=== PATIENT | female | born 1945 | race Asian ===

== ENCOUNTER 2018-05-22 10:07 | Inpatient (IN) | payer OTHER ==
[~2018-05-22] VITALS: Ht 154.9 cm; Wt 60.3 kg
[~2018-05-22 10:07] MED LIST: ATEN-41 PO; OMEG1CAP PO
[2018-05-22] MEDS ORDERED: CEFAZOLIN 1 GM IVPB PREMIX 0 ML IV ONE ×2 (10:26→10:30)
[2018-05-22] MEDS ORDERED: ceFAZolin SODIUM 1 GM VIAL ONE (10:28)
[2018-05-22] MEDS ORDERED: KETOROLAC TROMETHAMINE 30 MG VIAL IVP PRN (11:00)
[2018-05-22] MEDS ORDERED: fentaNYL CITRATE/PF 100 MCG/2 ML AMP IVP PRN ×2 (11:00)
[2018-05-22] MEDS ORDERED: ONDANSETRON HCL 4 MG/2 ML VIAL IVP PRN ×3 (11:00→14:45)
[2018-05-22] MEDS ORDERED: POLYMYXIN 500,000/BACIT.10,000 UNITS in NS IRR 1 L IR ONE (11:44)
[2018-05-22] MEDS ORDERED: CEFAZOLIN SOD 1 GM/ ISO 50 ML PREMIX IV ONE (12:45)
[2018-05-22] MEDS ORDERED: HYDROcodone/ACETAMIN 5-325 MG TAB (NORCO/ VICODIN) PO PRN ×2 (14:15)
[2018-05-22] MEDS ORDERED: OXYCODONE/ACETAMINOPHEN 5-325 TABLET PO PRN ×2 (14:15)
[2018-05-22 14:32] VITALS: BP_SYST 134
[2018-05-22] MEDS ORDERED: NEOSTIGMINE METHYLSULFATE 1 MG/ML, 10 ML VIAL ONE (14:40)
[2018-05-22] MEDS ORDERED: GLYCOPYRROLATE 0.2 MG/ML VIAL ONE (14:40)
[2018-05-22] MEDS ORDERED: fentaNYL CITRATE/PF 100 MCG/2 ML AMP ONE (14:40)
[2018-05-22] MEDS ORDERED: DEXTROSE 50% JECT 50 ML DISP.SYRIN ONE (14:40)
[2018-05-22] MEDS ORDERED: BUPIVACAINE /PF 0.5% 30 ML VIAL ONE (14:40)
[2018-05-22] MEDS ORDERED: ONDANSETRON HCL 4 MG/2 ML VIAL ONE (14:40)
[2018-05-22] MEDS ORDERED: ROCURONIUM BROMIDE 10 MG/ML (ZEMURON) ONE (14:40)
[2018-05-22] MEDS ORDERED: MIDAZOLAM HCL 5 MG/ML VIAL (VERSED) IV ONE (14:40)
[2018-05-22] MEDS ORDERED: CEFAZOLIN 1 GM IVPB PREMIX 50 ML IV ONE (14:40)
[2018-05-22] MEDS ORDERED: FUROSEMIDE 20 MG/2 ML VIAL ONE (14:40)
[2018-05-22] MEDS ORDERED: LIDOCAINE 2%, 20 ML MDV ONE (14:40)
[2018-05-22] MEDS ORDERED: PROPOFOL 200MG/ 20ML VIAL (DIPRIVAN) IV ONE (14:40)
[2018-05-22] MEDS ORDERED: LR 1,000 ML IV.SOLN IV ONE (14:40)
[2018-05-22] MEDS ORDERED: KETOROLAC TROMETHAMINE 30 MG VIAL ONE (14:40)
[2018-05-22] MEDS ORDERED: SEVOFLURANE 15 MIN GAS INH ONE (14:40)
[2018-05-22] MEDS ORDERED: ROPIVACAINE 0.2% 550 ML INJ SCH (14:41)
[2018-05-22] MEDS ORDERED: DIPHENHYDRAMINE INJ 50 MG/ML VIAL IVP PRN ×2 (14:45)
[2018-05-22] MEDS ORDERED: OXYCODONE/ACETAMINOPHEN *10*mg/325 mg TABLET PO PRN (14:45)
[2018-05-22] MEDS ORDERED: NALBUPHINE HCL 10 MG/ML AMP IVP PRN ×2 (14:45)
[2018-05-22] MEDS ORDERED: SIMETHICONE 80 MG TAB.CHEW PO SCH (17:00)
[2018-05-22] MEDS: ceFAZolin SODIUM 1 GM in D5W 50 ML IV SCH (18:00)
[2018-05-22] MEDS ORDERED: PROMETHAZINE HCL 50 MG/ML AMP IM ONE (19:44)
[2018-05-22] MEDS ORDERED: PROMETHAZINE HCL 25 MG/ML AMP ONE (19:44)
[2018-05-22] MEDS ORDERED: LR 1,000 ML IV SCH (23:44)
[2018-05-23] MEDS: ceFAZolin SODIUM 1 GM in D5W 50 ML IV SCH (02:00)
== END 2018-05-23 14:05 | disposition home or self-care (01) | DRG 743 ==
LOC: SMU 10:07 → SPU 15:56
PROVIDERS: ADMIT Specialist; ATTEND Specialist
PROC: 0UT7FZZ Resection of Bilateral Fallopian Tubes, Via Natural or Artificial Opening With Percutaneous Endoscopic Assistance (ICD-10-PCS; 2018-05-22)
PROC: 0UT2FZZ Resection of Bilateral Ovaries, Via Natural or Artificial Opening With Percutaneous Endoscopic Assistance (ICD-10-PCS; 2018-05-22)
PROC: 0USG4ZZ Reposition Vagina, Percutaneous Endoscopic Approach (ICD-10-PCS; 2018-05-22)
PROC: 0WH Anatomical Regions, General, Insertion (ICD-10-PCS; 2018-05-22)
PROC: 0TJB8ZZ Inspection of Bladder, Via Natural or Artificial Opening Endoscopic (ICD-10-PCS; 2018-05-22)
PROC: 0JH83WZ Insertion of Totally Implantable Vascular Access Device into Abdomen Subcutaneous Tissue and Fascia, Percutaneous Approach (ICD-10-PCS; 2018-05-22)
PROC: 0UT9FZZ Resection of Uterus, Via Natural or Artificial Opening With Percutaneous Endoscopic Assistance (ICD-10-PCS; principal; 2018-05-22 09:30)
DX: N81.3 Complete uterovaginal prolapse (principal); N95.2 Postmenopausal atrophic vaginitis; N81.4 Uterovaginal prolapse, unspecified; I10 Essential (primary) hypertension; N83.202 Unspecified ovarian cyst, left side; Z78.0 Asymptomatic menopausal state
CPT/HCPCS: 87081; 88307; J0690; J1885; J1940; J2001; J2250; J2405; J2550; J2704; J2710; J3010; J3490; J7060; J7120